=== PATIENT | female | born 1965 | race Caucasian/White ===

== ENCOUNTER → 2016-06-19 | Outpatient (CLI) | payer BC | LOC: KOH-I 09:50 | DX: M54.30 Sciatica, unspecified side (principal); M43.16 Spondylolisthesis, lumbar region; M47.816 Spondylosis without myelopathy or radiculopathy, lumbar region | CPT/HCPCS: 72110 ==

== ENCOUNTER → 2016-07-03 | Outpatient (CLI) | payer BC | LOC: EMI 17:42 | DX: M54.30 Sciatica, unspecified side (principal); M54.16 Radiculopathy, lumbar region; M48.06 Spinal stenosis, lumbar region; M47.816 Spondylosis without myelopathy or radiculopathy, lumbar region | CPT/HCPCS: 72148 ==

== ENCOUNTER → 2021-06-17 | Outpatient (CLI) | payer BC | LOC: HEART 5 09:06 | DX: I10 Essential (primary) hypertension (principal); I34.0 Nonrheumatic mitral (valve) insufficiency | CPT/HCPCS: 93306 ==

== ENCOUNTER → 2021-12-18 | Outpatient (CLI) | payer BC | LOC: KOH-I 15:51 | DX: R05.9 Cough, unspecified (principal) | CPT/HCPCS: 71046 ==

== ENCOUNTER → 2022-01-03 | Outpatient (CLI) | payer BC | LOC: CT 15:10 | DX: R59.0 Localized enlarged lymph nodes (principal); H70.12 Chronic mastoiditis, left ear | CPT/HCPCS: 70491; Q9967 ==